=== PATIENT | male | born 1975 | race Caucasian/White ===

== ENCOUNTER 2016-10-18 18:17 | Emergency (ER) | payer OTHER ==
[~2016-10-18] VITALS: Ht 170.2 cm; Wt 81.6 kg
[~2016-10-18 18:17] MED LIST: ATORVASTATIN CA40 MG PO; GLIPIZIDE5 MG PO; METFORMIN1000 MG PO; PRINIVIL 5MG5 MG PO
--- NOTE | 2016-10-18 20:03 | RADIOLOGY REPORT ---
EXAMINATION: XR SHOULDER, RIGHT CLINICAL INFORMATION: Right shoulder pain. Tendinitis. No trauma. COMPARISON: None. TECHNIQUE: 3 views of the right shoulder FINDINGS: There are no fractures or dislocations. No joint effusion is identified. No bone, joint or soft tissue abnormality is demonstrated. No calcification seen to suggest calcific tendinitis. The visualized right lung and ribs are normal. IMPRESSION: No acute osseous abnormality of the right shoulder.
--- NOTE | 2016-10-18 20:08 | ED UPPER/LOWER EXTREMITY COMPL ---
History of Present Illness General Chief Complaint: Upper Extremity Problem Stated Complaint: PT RIGHT ARM CAN'T LIFT OVER HIS HEAD Source: patient Exam Limitations: no limitations Vital Signs & Intake/Output Vital Signs & Intake/Output Vital Signs Date Time Temp Pulse Resp B/P Pulse O2 O2 Flow FiO2 Ox Delivery Rate 10/18 2011 98.6 76 18 120/84 100 Room Air 10/18 1842 98 Room Air 10/18 1822 96.8 74 20 114/72 97 Room Air Allergies Coded Allergies: NO KNOWN ALLERGIES (10/18/16) Reconcile Medications Atorvastatin Calcium (Lipitor) 40 MG TAB 40 MG PO DAILY HIGH CHOLESTROL ( Reported) Glipizide 5 MG TAB 1 TAB PO BID DM (Reported) Lisinopril (Prinivil) 5 MG TAB 1 TAB PO DAILY HTN (Reported) METFORMIN HCL (Metformin) 1,000 MG TAB 1 TAB PO BID DM (Reported) Triage Note: TRIAGE: PT TO ER C/C PAIN TO RT ARM FROM SHOULDER TO BICEP X 2.5 WKS. CONSTANT SINCE ONSET. RATES 8/10 AT PRESENT. DESCRIBES PAIN SHARP AND BURNING IN NATURE. TAKING ADVIL WITH NO RELIEF NOTED. STATES HAS LIMITED ROM OF ARM WELL. DENIES ANY INJURY. REFUSES PAIN MEDS OFFERED AT TRIAGE. Triage Nurses Notes Reviewed? 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 He does not recall any injury but he does repetitive lifting overhead and pulling down on the back door of his truck, reaching up to grab it to pull it down many times per day. He does not recall any specific time where he injured his shoulder there was no fall or injury. He has pain in the anterior and lateral shoulder area proximal humeral region. There is no swelling. He has severe pain with motion especially attempting overhead motion, he has difficult time lifting his arm up to the shoulder level. He is tried Advil and ice for the last 2 weeks without relief in his symptoms are moderate to severe. (PARUL VERAS,ELEONORA) Past History Travel History Traveled to [place] past 21 day No Medical History Any Pertinent Medical History? see below for history Neurological: NONE EENT: NONE Cardiovascular: hyperlipidemia Respiratory: NONE Gastrointestinal: NONE Hepatic: NONE Renal: NONE Musculoskeletal: NONE Psychiatric: NONE Endocrine: diabetes Blood Disorders: NONE Cancer(s): NONE LINUX ADMINISTRATOR/Reproductive: NONE Surgical History Surgical History: non-contributory Psychosocial History What is your primary language [place] Tobacco Use: Never used ETOH Use: denies use Illicit Drug Use: denies illicit drug use Family History Hx Contributory? No (ELEONORA ARTHUR) Review of Systems Review of Systems Constitutional: Reports: see HPI. EENTM: Reports: no symptoms. Respiratory: Reports: no symptoms. Cardiovascular: Reports: no symptoms. Gastrointestinal/Abdominal: Reports: no symptoms. Genitourinary: Reports: no symptoms. Musculoskeletal: Reports: see HPI. Skin: Reports: no symptoms. Neurological/Psychological: Reports: no symptoms. Hematologic/Endocrine: Reports: no symptoms. Immunological: Reports: no symptoms. All Other Systems: Reviewed and Negative (ELEONORA ARTHUR) Physical Exam Physical Exam General Appearance: well developed/nourished Comments: Well-developed well-nourished no apparent distress. HEENT: Atraumatic, extraocular motion intact Neck: Supple, no lymphadenopathy Back: Nontender Respiratory: No respiratory distress Extremities: No edema, full range of motion Neuro: Alert and oriented x3 Psych: Mood affect normal, normal memory normal judgment. Skin: Warm and dry, no rash on exposed skin Right upper extremity, tenderness over the proximal biceps tendon, positive speed's test. Patient is unable to fully elevate the arm past 75 or abduction past 75. Positive Nino Jean Carlos test. Negative drop arm test, mild impingement signs noted. Neurovascularly intact (ELEONORA ARTHUR) Progress Differential Diagnosis: contusion, dislocation, fracture, sprain, tendon injury Plan of Care: Risks and benefits of cortisone injection discussed. Patient has failed outpatient treatment with NSAIDs and resting and ice, he is having a hard time performing his job because of his pain. He has requested a cortisone injection in his shoulder for the immediate pain relief and anti-inflammatory effects. He has had cortisone the past and they have been extremely beneficial to him without any adverse reactions. Risks and benefits of injection discussed including injection site infection pain and elevation of blood sugar. After sterile prep, the right anterior shoulder was marked at the biceps tendon region , proximal biceps tendon repair patient's maximal area of pain is. A mixture of 5 mL of 1% lidocaine and 1 mL of 4 mg of dexamethasone was instilled into the tendon sheath of the proximal biceps. Patient tolerated well without complications. He felt significant relief of symptoms after the injection. He was was asked to follow-up with orthopedist as outpatient. Dexamethasone Lot number [id number] expiration 01/08 and DC #[id number] 1 Diagnostic Imaging: Viewed by Me: Radiology Read. Discussed w/RAD: Radiology Read. Radiology Impression: PATIENT: CHEO LAGUNAS PRESENT AGE: 40 PATIENT ACCOUNT NO: [id number] : 74 LOCATION: [facility] ORDERING PHYSICIAN: ELEONORA VERAS SERVICE DATE: 10/18/16 EXAM TYPE : RAD - XRY-SHOULDER COMPLETE-RIGHT EXAMINATION: XR SHOULDER, RIGHT CLINICAL INFORMATION: Right shoulder pain. Tendinitis. No trauma. COMPARISON: None. TECHNIQUE: 3 views of the right shoulder FINDINGS: There are no fractures or dislocations. No joint effusion is identified. No bone, joint or soft tissue abnormality is demonstrated. No calcification seen to suggest calcific tendinitis. The visualized right lung and ribs are normal. IMPRESSION: No acute osseous abnormality of the right shoulder. DICTATED BY: ADRIANA TAN MD DATE /TIME DICTATED:10/18/161957 SUPERVISOR [employer]:JOHN (ELEONORA ARTHUR) Departure Departure Disposition: HOME OR SELF CARE Condition: Stable Clinical Impression Primary Impression: Biceps tendinitis of right shoulder Referrals: ROSA ELENA CRAWFORD,TONNY Del Cid (PCP/Family) NAYLA CRAWFORD,AYAKA Additional Instructions: Continue ice and Advil. Rest, avoid overhead motion and activity and repetitive motion. Follow-up with orthopedist in one to 2 weeks Departure Forms: Customer Survey General Discharge Information (ELEONORA ARTHUR) PA/SUPERVISOR [employer] Co-Sign Statement Statement: ED Attending supervision documentation- [] I saw and evaluated the patient. I have also reviewed all the pertinent lab results and diagnostic results. I agree with the findings and the plan of care as documented in the PA's/SUPERVISOR [employer]'s documentation. x I have reviewed the ED Record and agree with the PA's/SUPERVISOR [employer]'s documentation. [] Additions or exceptions (if any) to the PAs/SUPERVISOR [employer]'s note and plan are summarized below: [] (KINJAL CRAWFORD,SENTHIL)
[2016-10-18 20:12] VITALS: BP 120/84
== END 2016-10-18 20:13 ==
LOC: ERH 18:17
DX: M75.91 Shoulder lesion, unspecified, right shoulder (principal)
CPT/HCPCS: 73030-RT